=== PATIENT | male | born 2000 | race Caucasian/White ===

== ENCOUNTER 2022-02-28 18:12 | Emergency (ER) | payer MEDICAID, OTHER ==
[~2022-02-28] VITALS: Ht 164.3 cm; Wt 63.7 kg
[2022-02-28 18:23] VITALS: BP 142/77
--- NOTE | 2022-02-28 18:36 | NUR ---
Gilberto hdz in [facility] - 02/28/22 at 1837 by MED[facility] JI. HANDED ON URINE CUP.
--- NOTE | 2022-02-28 18:37 | NUR ---
PT AMB TOB BED 1.
--- NOTE | 2022-02-28 18:46 | NUR ---
21/M FOR PSYCH EVAL ACCOMPANIED BY MOM. MOM REPORTS PT INGESTED UNK SUBSTANCE AT WORK YESTERDAY AND HAS NOT BEEN ACTING AT BASELINE MENTATION. PMH: DENIES
--- NOTE | 2022-02-28 18:48 | NUR ---
BLOOD BEING DRAWN AT BEDSIDE BY [employer]INE PIP[employer]ITTER
[2022-02-28 18:55] LABS: BASOPHILS % (AUTO) 0.7 % (0.0-2.0); EOSINOPHILS # (AUTO) 0.2 K/uL (0-0.4); EOSINOPHILS % (AUTO) 2.4 % (0.0-4.0); HEMATOCRIT 46.4 % (36-52); HEMOGLOBIN 15.7 g/dL (12.0-18.0); LYMPHOCYTES # (AUTO) 1.7 K/uL (2.0-11.5); LYMPHOCYTES % (AUTO) 24.5 % (20.5-51.1); MEAN CORPUSCULAR HEMOGLOBIN 29 pg (27-31); MEAN CORPUSCULAR HGB CONC 34 g/dL (33-37); MEAN CORPUSCULAR VOLUME 86.8 fL (80-94); MONOCYTES # (AUTO) 0.5 K/uL (0.8-1.0); MONOCYTES % (AUTO) 6.7 % (1.7-9.3); NEUTROPHILS # (AUTO) 4.6 K/uL (1.8-7.7); NEUTROPHILS % (AUTO) 65.7 % (42.2-75.2); PLATELET COUNT (AUTO) 345 K/uL (140-450); RED BLOOD CELL COUNT(AUTO) 5.34 MIL/uL (4.20-6.10); RED CELL DISTRIBUTION WIDTH 13.7 % (11.6-13.7)
--- NOTE | 2022-02-28 19:10 | NUR ---
Received report from BRIANNA Rahman and continue care of patient.
[2022-02-28 19:12] LABS: ACETAMINOPHEN < 0.5 ug/ml (10-30); ALBUMIN 4.4 g/dL (3.4-5.0); ANION GAP 15.6 (8-16); ASPARTATE AMINOTRANSFERASE 11 U/L (15-37); CHLORIDE 103 mmol/L (98-107); GFR ARICAN-AMERICAN 124 mL/min (>90); GLUCOSE 94 mg/dL (74-106); POTASSIUM 3.6 mmol/L (3.5-5.1); SALICYLATE < 2.8 mg/dL (2.8-20.0); SODIUM SERUM 141 mmol/L (136-145); TOTAL BILIRUBIN 0.3 mg/dL (0.0-1.0); UREA NITROGEN, BLOOD 18 mg/dL (7-18)
--- NOTE | 2022-02-28 19:20 | NUR ---
Urine sample collected and sent to lab.
[2022-02-28 19:28] LABS: APPEARANCE,URINE CLEAR (CLEAR); BILIRUBIN,URINE 1+ (NEGATIVE); BLOOD, URINE TRACE-I (NEGATIVE); COLOR,URINE YELLOW (YELLOW); LEUKOCYTE ESTERASE ,URINE NEGATIVE (NEGATIVE); NITRITE, URINE NEGATIVE (NEGATIVE); PH,URINE 5.5 (5.0-9.0); UGLUCOSE NEGATIVE (NEGATIVE)
[2022-02-28 19:44] LABS: OTHER CASTS, URINE None Seen /LPF (None Seen); RBC,URINE 0-5 /HPF (0-5); WBC,URINE 0-5 /HPF (0-5)
[2022-02-28 19:45] LABS: BARBITURATE, URINE NEGATIVE ng/ml (NEG <=200); BENZODIAZEPINE, URINE NEGATIVE ng/mL (NEG <=200); CANNABINOID, URINE POSITIVE ng/mL (NEG <=50); COCAINE, URINE NEGATIVE ng/mL (NEG <=300); OPIATE, URINE NEGATIVE ng/mL (NEG <=2000); PHENCYCLIDINE SCREEN,URINE NEGATIVE ng/mL (NEG <=25)
--- NOTE | 2022-02-28 19:56 | NUR ---
Dr. Arvizu examining patient.
[2022-02-28 20:36] VITALS: BP 128/75
--- NOTE | 2022-02-28 20:36 | NUR ---
Patient discharged with v/s stable. Written and verbal after care instructions given and explained. Patient verbalized understanding. Ambulatory with steady gait. All questions addressed prior to discharge. Advised to follow up with PMD.
== END 2022-02-28 20:36 | disposition home or self-care (01) ==
LOC: MED 18:12
DX: F12.10 Cannabis abuse, uncomplicated (principal); R41.0 Disorientation, unspecified
CPT/HCPCS: 36415; 80053; 80305; 81001; 85025; 99283; G0480; G0482

== ENCOUNTER 2022-05-04 22:28 | Emergency (ER) | payer OTHER ==
[~2022-05-04] VITALS: Ht 165.1 cm; Wt 63.5 kg
[2022-05-04 22:50] VITALS: BP 133/78
--- NOTE | 2022-05-04 22:54 | NUR ---
TO LOBBY FOLLOWING TRIAGE
--- NOTE | 2022-05-05 01:00 | NUR ---
PT TAKEN TO BED 4
[2022-05-05 01:18] VITALS: BP 133/78
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
[2022-05-05] MEDS ORDERED: IBUPROFEN 600 MG TAB PO ONE (02:20)
[2022-05-05] MEDS ORDERED: NAPR-54 PO (03:23)
--- NOTE | 2022-05-05 03:43 | NUR ---
Patient discharged with v/s stable. Written and verbal after care instructions given and explained. Patient verbalized understanding. Ambulatory with steady gait. All questions addressed prior to discharge. Advised to follow up with PMD. pt left with his belongings.
== END 2022-05-05 03:29 | disposition home or self-care (01) ==
LOC: MED 22:28
DX: S33.8XXA Sprain of other parts of lumbar spine and pelvis, initial encounter (principal); Z79.1 Long term (current) use of non-steroidal anti-inflammatories (NSAID); V89.2XXA Person injured in unspecified motor-vehicle accident, traffic, initial encounter; Y93.89 Activity, other specified; Y92.410 Unspecified street and highway as the place of occurrence of the external cause; Y99.8 Other external cause status
CPT/HCPCS: 72110; 99283

== ENCOUNTER 2023-05-23 13:38 | Emergency (ER) | payer OTHER ==
[~2023-05-23] VITALS: Ht 165.1 cm; Wt 70.3 kg
[~2023-05-23 13:38] MED LIST: NAPR-54 PO
[2023-05-23 14:50] VITALS: BP 146/84; PULSE 62; RESP 20; TEMP 99.6; O2SAT 98
[2023-05-23] MEDS ORDERED: LIDOCAINE MPF 1% 10 MG/ML VIAL INJ ONE (15:15)
[2023-05-23] MEDS ORDERED: KETOROLAC 30 MG/ML VIAL IM ONE (15:35)
[2023-05-23] MEDS ORDERED: KETOROLAC 30 MG/ML VIAL ONE (16:36)
[2023-05-23 16:57] VITALS: BP 125/80; PULSE 60; RESP 20; TEMP 98; O2SAT 99
== END 2023-05-23 16:57 | disposition home or self-care (01) ==
LOC: MED 13:38
DX: S61.012A Laceration without foreign body of left thumb without damage to nail, initial encounter (principal); W26.8XXA Contact with other sharp object(s), not elsewhere classified, initial encounter; Y93.89 Activity, other specified; Y92.89 Other specified places as the place of occurrence of the external cause; Y99.8 Other external cause status
CPT/HCPCS: 12001; 73130; 90471; 90715; 96372; 99284; J1885; J2001

== ENCOUNTER 2023-05-26 09:21 | Emergency (ER) | payer OTHER ==
[~2023-05-26] VITALS: Ht 167.6 cm; Wt 59.0 kg
[2023-05-26 09:32] VITALS: BP 135/76; PULSE 89; RESP 18; TEMP 99; O2SAT 98
[2023-05-26 09:38] VITALS: O2SAT 98
== END 2023-05-26 10:14 | disposition home or self-care (01) ==
LOC: MED 09:21
DX: S61.012D Laceration without foreign body of left thumb without damage to nail, subsequent encounter (principal); X58.XXXD Exposure to other specified factors, subsequent encounter
CPT/HCPCS: 99281

== ENCOUNTER 2023-05-31 07:50 | Emergency (ER) | payer OTHER | END 2023-05-31 08:06 | disposition left against medical advice (07) | LOC: MED 07:50 | DX: Z48.02 Encounter for removal of sutures (principal); Z53.21 Procedure and treatment not carried out due to patient leaving prior to being seen by health care provider ==